=== PATIENT | female | born 1995 | race Caucasian/White ===

== ENCOUNTER → 2018-08-08 22:48 | Observation (INO) ==
--- NOTE | 2018-08-08 22:37 | Discharge Summary ---
Date of Encounter: 08/08/18 Time of Encounter: 22:36 - Discharge Diagnosis (1) 32 weeks gestation of Priority: Primary Status: Acute Comments: admitted for observation (2) Decreased movement during in third trimester, antepartum Priority: Secondary Status: Acute Comments: FHR 135 bpm moderate variability +15x15 accels no decels noted. Cat. 1 tracing no contractions Qualifiers: Fetus number: single or unspecified fetus Qualified Code(s): O36.8130 - Decreased movements, third trimester, not applicable or unspecified (3) NST (non-stress test) reactive on surveillance Priority: Secondary Status: Acute (4) Heartburn during in third trimester Priority: Secondary Status: Acute - Discharge Medications Prescriptions: No Action Multivitamin with Iron Tablet 325 mg PO DAILY Alive Gummy 1 tab PO DAILY Home Medications: Alive Gummy 1 tab PO DAILY 08/08/18 [History] Multivitamin with Iron Tablet 325 mg PO DAILY 08/08/18 [History] Allergies/Adverse Reactions: Allergy/AdvReac Type Severity Reaction Status Date / Time No Known Allergies Allergy Verified 08/08/18 21:32 Date of admission: 08/08/18 21:11 Discharging clinician: Gaviota Mcdonald Anticipated date of discharge: 08/08/18 - Patient Status Disposition: Home, Self-Care Condition: Good Functional capacity at discharge: independent ambulation - Discharge Instructions Follow Up With: Topher Roe MD [Partnered Physician] - - Diet and Activity Activity: increase activity as tolerated Diet: regular diet Hospital Course REGISTER IN CHANCERY Hospital course: Patient is a 22 y/o @ 32w1d presents to labor and delivery with complaints of decreased movement and epigastric pain. Patient reports she took 150mg zantac around 3:00 today and got minimal relief. Patient denies contractions, LOF or VB. Patient denies visual disturbances or headaches. VS WNL. Patient was given Maalox while on labor and delivery and reports epigastric pain is better. Patient had felt appropriate movement since being on labor and delivery. Patient is scheduled to follow up with Dr. Roe on Thursday. Time Attestation: Total time spent providing and/or coordinating discharge services: Time Spent: Less than 30 minutes Exam - Constitutional General appearance IM: A&O X 3, pleasant, answers questions appropriately - Respiratory Respiratory exam: Present: CTAB - Cardiovascular Cardiovascular exam IM: Present: RRR, +S1, +S2 - GI/Abdominal GI/Abdominal exam IM: normal bowel sounds - Extremities Exam Extremities exam IM: Present: full ROM, normal inspection. Absent: pedal edema - Neurological Exam Neurological exam: alert, oriented X3, reflexes normal (FHR 135 bpm moderate variability + 15x15 accels no decels noted. Cat. 1 tracing. ) - VTE Reasons for not Prescribing Prophylaxis: Treatment not Indicated - Low risk for VTE
[~2018-08-08 22:48] MED LIST: Mag Hydrox/Al Hydrox/Simeth 30 ML UDC PO PRN
== END | disposition home or self-care (01) ==
LOC: 1NENULAB
PROVIDERS: ADMIT Advanced Practice Midwife; ATTEND Advanced Practice Midwife

== ENCOUNTER 2018-09-18 21:14 | Inpatient (IN) ==
--- NOTE | 2018-09-18 21:21 | OB/GYN History & Physical ---
Date of Encounter: 09/19/18 Time of Encounter: 22:00 Assessment and Plan (1) 38 weeks gestation of Current visit: Yes Status: Acute Admit for spontaneous labor Continue with expectant management Epidural if patient desires Plan of care discussed with Dr. Rocha AB+ GBS negative HbSAG negative (2) NST (non-stress test) reactive on surveillance Current visit: Yes Status: Acute FHR 130bpm, moderate variability, 15x15 accels, no decels (3) Type AB blood, Rh positive Current visit: Yes Status: Acute History of Present Illness Chief complaint: Contractions HPI: Ms. Weiss is a 22 year old female patient of Dr. Reo, at 38+0 who presented to L&D due to increased intensity of contractions around 1600 today. History of anemia during this , on daily iron supplementation. Previous history of hemorrhage requiring medication, denies any other complications. Non-smoker, denies history of illicit drug use. Labs: AB+ GBS negative RPR negative Rubella Immune Varicella Immune Hep C negative HbSAG negative 02/19/18 Past Med Surg Social Fam HX - Past Medical History Medical history: no medical history Psychiatric history: no psych history - Past Surgical History Surgical History: other Additional surgical history: t&a, wisdom teeth - Social History Smoking Status: Never smoker Smokeless Tobacco Status: No Alcohol use: none Drug use: none - Family History Father Adopted: [place]: Mother Living Status: Still Living Hx Family Cardiac Disorders: No Hx Family Respiratory Disorders: Yes (Lung CA) Hx Family Cancer: No Hx Family GI Disorders: No Hx Family Endocrine Disorder: Yes Hx Family Neuromuscular Disorders: No Hx Family Neurologic Disorders: No Hx Family HEENT Disorders: No Hx Family Autoimmune Disorders: No Mother Adopted: No Living Status: Still Living Hx Family Cardiac Disorders: No Hx Family Respiratory Disorders: No Hx Family Cancer: No Hx Family GI Disorders: No Hx Family Endocrine Disorder: Yes (diabetes) Hx Family Neuromuscular Disorders: No Hx Family Neurologic Disorders: No Hx Family HEENT Disorders: No Hx Family Autoimmune Disorders: No Obstetrical History - Pregnancies : 4 Para: 3 Term: 2 : 1 Ab's: 0 Livin Medications and Allergies Multivitamin with Iron Tablet 325 mg PO DAILY 08/08/18 [History] Ferrous Sulfate [Iron] 325 mg PO DAILY 09/06/18 [History] Allergy/AdvReac Type Severity Reaction Status Date / Time No Known Allergies Allergy Verified 09/18/18 22:34 Review of System OB - Constitutional Constitutional ROS IM: no chills, no fever(s), no headache(s) - Cardiovascular Cardiovascular: no chest pain, no edema, no irregular heart rhythm - Respiratory Respiratory: no dyspnea, no wheezing - Gastrointestinal Gastrointestinal: cramping, no change in bowel habits, no vomiting - Genitourinary Genitourinary: no abnormal vaginal bleeding, no difficulty voiding, no dysuria, no hematuria, no vaginal pruritis - Neurological Nerological: no behavioral changes, no burning sensations, no dizziness - Psychiatric Psychiatric: no behavioral changes - Hematologic/Lymphatic Hematologic/Lymphatic: no easy bleeding, no easy bruising Exam - Constitutional Constitutional: well developed, well nourished, no acute distress - HEENT HEENT: EOMI, Normocephaly, Mucus Membranes Moist - Neck Neck exam: trachea midline - Lungs Respiratory exam: CTAB - Cardiovascular Cardiovascular exam: RRR, +S1, +S2 - Abdomen Abdomen: Present: bowel sounds normal, gravid, non tender - Extremities Extremities exam: pedal edema, warm Deep Tendon Reflex Grade: 2+ Normal (+) - Cervix Dilation: 5 Effacement: 50 Station: -2 - Uterus Uterus exam: Present: normal size (per gestation), normal contour Results Result Diagrams: 09/18/18 22:15 All other labs normal. - VTE Reasons for not Prescribing Prophylaxis: Treatment not Indicated - Low risk for VTE
[2018-09-18 21:46] LABS: Candida DNA Not Detected (Not Detect); Gardnerella DNA Not Detected (Not Detect); Trichomonas DNA Not Detected (Not Detect)
[2018-09-18] MEDS ORDERED: Lidocaine 1% 20 ML MDV INFILT PRN (21:48)
[2018-09-18] MEDS ORDERED: Famotidine 20 MG/2 ML VIAL IVP PRN (21:48)
[2018-09-18] MEDS ORDERED: *HR* Nalbuphine 10 MG/ML AMPUL IVP PRN (21:48)
[2018-09-18] MEDS ORDERED: Ondansetron 4 MG/2 ML VIAL IVP PRN (21:48)
[2018-09-18] MEDS ORDERED: Naloxone 0.4 MG/ML INJ IVP PRN (21:48)
[2018-09-18] MEDS ORDERED: Metoclopramide 10 MG/2 ML VIAL IVP PRN (21:48)
[2018-09-18] MEDS ORDERED: Ringers Solution, Lactated 1,000 ML IVC SCH (22:00)
--- NOTE | 2018-09-18 22:08 | Anesthesia Evaluation PreOp ---
Date of Encounter: 09/18/18 Time of Encounter: 22:06 - Past History Planned Operation: hallie Cardiac History: Denies any Significant Hx Pulmonary History: Denies Any Significant HX SILVER MINER BLASTING History: Denies Any Significant HX Other Medical History: GERD Anesthesia History: No Prior Anesthetic Complications, Past Anesthesia (Tonsil, CLEx3) : Yes Test: Positive Alcohol Use: none Drug use: none Medications and Allergies Multivitamin with Iron Tablet 325 mg PO DAILY 08/08/18 [History] Ferrous Sulfate [Iron] 325 mg PO DAILY 09/06/18 [History] Allergy/AdvReac Type Severity Reaction Status Date / Time No Known Allergies Allergy Verified 08/08/18 21:32 - Meds/Allergy Pre-op Review Medications Reviewed: Yes Allergies Reviewed: Yes Beta Blockers on Current Med List: No Anesthesia Exam see nsg note Height: 5'3" Weight: 149lb NPO (# of Hours): 2 Pain Scale: 3 Pain Scale Used: Numeric (1 - 10) - HEENT Pupil (Motor): Pupils equal Mallampati: I Teeth: Normal Oral Opening: Greater than 3 - SILVER MINER BLASTING LOC: Oriented SILVER MINER BLASTING Motor: Normal RUE, Normal LUE, Normal RLE, Normal LLE, Normal Face SILVER MINER BLASTING Sensory: Normal: RUE, LUE, RLE, LLE, Face - Cardiac Rhythm: Regular Murmur: None - Pulmonary Breath Sounds: bilateral Clear Respiratory Effort: Symmetrical Anesthesia Assess/Plan ASA Score: 2 Anesthetic Plan: Epidural (risks discussed, questions answered, consented) Autologous Blood: Yes Monitoring Plan: Standard Monitors Recovery Plan: Other
[2018-09-18] MEDS ORDERED: *HR* FentaNYL (PF) 100 MCG/2 ML VIAL EP ONE (22:09)
[2018-09-18] MEDS ORDERED: *HR* Ropivacaine/PF 0.2% 20 ML VIAL EP ONE (22:09)
[2018-09-18] MEDS ORDERED: Epidural Premix (fent/bupiv) 110 ML EP SCH (22:15)
[2018-09-18 22:43] LABS: Basophils % 0.3 %; Eosinophils % 0.1 %; Hemoglobin 10.7 g/dL (11.5-15.4); Immature Granulocytes % 1.2 % (0-4); Lymphocytes % 21.1 %; Mean Corpuscular HGB Conc 32.4 g/dL (31.6-35.5); Mean Corpuscular Hemoglobin 26.4 pg (28.0-33.3); Mean Corpuscular Volume 81.5 fL (83.0-100.0); Mean Platelet Volume 10.3 fL (9.4-12.4); Monocytes # 0.6 K/mcL (0.0-1.3); Neutrophils # 6.7 K/mcL (1.6-8.9); Platelet Count 192 K/mcL (140-400); Red Blood Count 4.05 M/mcL (3.82-4.97); Red Cell Distribution Width 13.2 % (11.5-14.5); Segmented Neutrophils % 71.3 %
[2018-09-18 22:55] LABS: Amphetamine Screen,Urine Negative ng/mL (Cutoff=1000); Barbiturate Screen,Urine Negative ng/mL (Cutoff=200); Benzodiazepines Screen,Urine Negative ng/mL (Cutoff=200); Cannabinoid Screen,Urine Negative ng/mL (Cutoff = 50); Cocaine Screen,Urine Negative ng/mL (Cutoff= 300); Opiate Screen,Urine Negative ng/mL (Cutoff=300); Phencyclidine Screen,Urine Negative ng/mL (Cutoff=25)
[2018-09-18] MEDS ORDERED: *HR* FentaNYL (PF) 100 MCG/2 ML VIAL ONE (23:49)
[2018-09-18] MEDS ORDERED: Lidocaine -MPF 2% 5 ML VIAL ONE (23:51)
[2018-09-18] MEDS ORDERED: *HR* Oxytocin 10 UNIT/ML VIAL IM ONE (23:51)
[2018-09-19] MEDS ORDERED: Lidocaine -MPF 2% 5 ML VIAL ONE (00:30)
--- NOTE | 2018-09-19 00:45 | Anesthesia Procedures ---
Date of Encounter: 09/19/18 Time of Encounter: 00:42 Procedures: Anesthesia - Epidural/Spinal Patient ID/Chart reviewed: Yes Patient examined: Yes OB Eval: Gestational age: 38 OB Eval: : 4 OB Eval: Hx Para: 3 OB Eval: Dilated at (cm): 6 OB Eval: Contractions: Non-stressed pattern Consent Obtained: Yes Supplemental Oxygen: None/Room Air Site Prep: Aseptic Technique, Sterile prep and drape, 0.5% Chlorhexidine/Alcohol Patient position: upright Local Anesthetic: Lidocaine 1% Amount of Local Anesthetic used: 3 Touhy Needle Gauge: 18 Touhy Needle Depth (cm): 6 Catheter Depth at Skin (cm): 15 Test Dose (1.5% Lido + Epi): Volume given (mls): 3 Test Dose Result: Negative Loading Dose: Fentanyl (mcg): 100 Loading Dose: Other: ropivacaine 0.2% 7cc Loading Dose Administered: Thru Touhy Needle Infusion Med: 0.125% Bupivacaine w/ 2 mcg/ml Fentanyl Catheter Secured in Place: Tegaderm Interspace Used: L2-L3 Loss of Resistance (SRAVAN): Yes Blood: No CSF: No Paresthesia: No Procedure: aseptic, danielle well, VSS, effective Vitals + FHT's: 104/78 88 fht 132
[2018-09-19] MEDS ORDERED: Oxytocin 20 units/ LR 1000 mL 20 UNIT/1,000 ML BAG IVC ONE (01:35)
--- NOTE | 2018-09-19 03:23 | OB Labor Progress Note ---
Date of Encounter: 09/19/18 Time of Encounter: 00:42 Labor Progress Note - Subjective Subjective: Patient resting comfortably after epidural placed. - Vital Signs Vital Signs: WNL - Cervix Cervix: 7/50/-1 - Heart Tones Heart Tones: Reactive Cat I tracing - Ava Ava: Q2-3 min - Interventions Interventions: SVE AROM for scant amount of clear fluid. - Plan Plan: Frequent position change with peanut ball Anticipate
--- NOTE | 2018-09-19 03:27 | OB/GYN Procedure Note ---
Delivery - Delivery Date: 09/19/18 Provider: Rhonda Barr (Jonah Haines) Intrapartum events: none Delivery induction: none Delivery augmentation: rupture of membranes Delivery monitor: external FHT, external uterine Anesthesia: epidural Quantitated Blood Loss: 50 - Infant (s) Infant A Delivery Date: 09/19/18 Delivery Time: 03:02 Presentation: vertex Position: ARTURO Route of delivery: Gender: Female Viability: Viable Pounds: 8 Ounces: 3 Weight Gram: 3710 kg at 1 minute: 8 at 5 mins: 9 Shoulder Dystocia: not encountered Placenta: spontaneous Cord: 3 umbilical vessels - Repair Episiotomy: none Laceration Description: None - Complications Delivery complications: none Delivery comments: Called to room for delivery. I was gowned and gloved with Mary Haines, PGY1, together we had a spontaneous delivery of viable female infant over intact perineum. placed on maternal abdomen for drying and stimulation. Cord clamped and cut after pulsation ceased. Spontaneous delivery of intact placenta, EBL 50 mL's. No nuchal cord, shoulder dystocia, or meconium encountered. Mother and infant in kangaroo care for 2 hour recovery. - Disposition Mom disposition: stable in LDR disposition: stable in LDR
[2018-09-19] MEDS ORDERED: Oxytocin 20 units/ LR 1000 mL 20 UNIT/1,000 ML BAG IVC SCH (05:14)
[2018-09-19] MEDS ORDERED: Acetaminophen 325 MG TABLET PO PRN (05:14)
[2018-09-19] MEDS ORDERED: Lanolin 7 G OINT...G. TP PRN (05:14)
[2018-09-19] MEDS: Prenatal Vit/FA 1 EACH TABLET PO SCH (09:12)
[2018-09-19] MEDS: Ibuprofen 600 MG TABLET PO PRN ×2 (09:14→22:28)
[2018-09-20] MEDS: Prenatal Vit/FA 1 EACH TABLET PO SCH (08:05)
[2018-09-20 08:13] VITALS: BP 107/70
--- NOTE | 2018-09-20 08:42 | Discharge Summary ---
Date of Encounter: 09/20/18 Time of Encounter: 08:39 - Discharge Diagnosis (1) Vaginal delivery Priority: Primary Status: Acute Comments: Patient meeting day one milestones. Pain well-controlled with prescribed medications. Voiding without difficulty, tolerating regular diet, bleeding light. No bowel movement yet. Anticipate discharge today - Discharge Medications Prescriptions: New Acetaminophen [Tylenol] 650 mg PO Q6H PRN tablet PRN Reason: Mild Pain Ibuprofen [Motrin] 600 mg PO Q6H PRN #60 tablet PRN Reason: Cramping Docusate [Colace] 100 mg PO BID capsule Continued Multivitamin with Iron Tablet 325 mg PO DAILY Ferrous Sulfate [Iron] 325 mg PO DAILY Home Medications: Multivitamin with Iron Tablet 325 mg PO DAILY 08/08/18 [History] Ferrous Sulfate [Iron] 325 mg PO DAILY 09/06/18 [History] Acetaminophen [Tylenol] 650 mg PO Q6H PRN tablet 09/20/18 [Rx] Docusate [Colace] 100 mg PO BID capsule 09/20/18 [Rx] Ibuprofen [Motrin] 600 mg PO Q6H PRN #60 tablet 09/20/18 [Rx] Allergies/Adverse Reactions: Allergy/AdvReac Type Severity Reaction Status Date / Time No Known Allergies Allergy Verified 09/18/18 22:34 Data Procedures and tests throughout hospitalization: Laboratory Tests 09/18/18 09/18/18 09/18/18 20:00 22:15 22:30 WBC 9.4 RBC 4.05 Hgb 10.7 L Hct 33.0 L MCV 81.5 L MCH 26.4 L MCHC 32.4 RDW 13.2 Plt Count 192 MPV 10.3 Immature Gran % 1.2 Seg Neutrophils % 71.3 Lymphocytes % 21.1 Monocytes % 6.0 Eosinophils % 0.1 Basophils % 0.3 Neutrophils # 6.7 Lymphocytes # 2.0 Monocytes # 0.6 Eosinophils # 0.0 Basophils # 0.0 Urine Opiates Screen Negative Ur Barbiturates Screen Negative Ur Phencyclidine Scrn Negative Ur Amphetamines Screen Negative U Benzodiazepines Scrn Negative Urine Cocaine Screen Negative U Marijuana (THC) Screen Negative Ur Drug Screen Interp See Below Yanni species DNA Not Detected Gardnerella DNA Probe Not Detected Trichomonas DNA Probe Not Detected Date of admission: 09/18/18 21:52 Consults: 09/19/18 05:14 Consult to Impregnating Helper [CONS] Routine Comment: Vaginal delivery, consult needed Discharging clinician: Rhonda Barr Anticipated date of discharge: 09/20/18 - Patient Status Disposition: Home, Self-Care Condition: Good Functional capacity at discharge: independent ambulation Overall status at discharge: patient is progressing back to baseline - Discharge Instructions Follow Up With: Topher Roe MD [Partnered Physician] - - Diet and Activity Activity: resume usual activities as tolerated Diet: regular diet Hospital Course Reason for admission: active labor Delivery: Episiotomy: none Laceration: none Other procedures: none complications: none Discharge diagnosis: IUP at term delivered baby: female Hospital course: Delivery Date: 09/19/18 Provider: Rhonda Barr (Jonah Haines) Intrapartum events: none Delivery induction: none Delivery augmentation: rupture of membranes Delivery monitor: external FHT, external uterine Anesthesia: epidural Quantitated Blood Loss: 50 - Infant (s) Infant A Delivery Date: 09/19/18 Delivery Time: 03:02 Presentation: vertex Position: ARTURO Route of delivery: Gender: Female Viability: Viable Pounds: 8 Ounces: 3 Weight Gram: 3710 kg at 1 minute: 8 at 5 mins: 9 Shoulder Dystocia: not encountered Placenta: spontaneous Cord: 3 umbilical vessels - Repair Episiotomy: none Laceration Description: None - Complications Delivery complications: none Delivery comments: Called to room for delivery. I was gowned and gloved with Mary Haines, PGY1, together we had a spontaneous delivery of viable female over intact perineum. Infant placed on maternal abdomen for drying and stimulation. Cord clamped and cut after pulsation ceased. Spontaneous delivery of intact placenta, EBL 50 mL's. No nuchal cord, shoulder dystocia, or meconium encountered. Mother and in kangaroo care for 2 hour recovery. - Disposition Mom disposition: stable in LDR disposition: stable in LDR Time Attestation: Total time spent providing and/or coordinating discharge services: Time Spent: Less than 30 minutes Exam - Constitutional Vitals: Temp Pulse Resp BP Pulse Ox 97.7 F 83 16 107/70 99 09/20/18 08:12 09/20/18 08:12 09/20/18 08:12 09/20/18 08:12 09/20/18 04:07 General appearance IM: A&O X 3, pleasant, no acute distress, answers questions appropriately - Respiratory Respiratory exam: Present: CTAB - Cardiovascular Cardiovascular exam IM: Present: RRR, +S1, +S2 - GI/Abdominal GI/Abdominal exam IM: normal bowel sounds, soft - Rectal Rectal exam: deferred - External exam: normal external exam Uterine Tone: Firm Uterus Position: 2 Fingers Below Umbilicus, Midline - Extremities Exam Extremities exam IM: Present: full ROM, normal capillary refill, normal inspection - Neurological Exam Neurological exam: alert, normal gait, oriented X3
== END 2018-09-20 11:20 | disposition home or self-care (01) | DRG 560 ==
LOC: 1NENULAB → 1NENUOBS 09-19 05:12
PROVIDERS: ADMIT Registered Nurse; ATTEND Registered Nurse